=== PATIENT | male | born 2000 | race Caucasian/White ===

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

== ENCOUNTER 2020-09-11 23:46 | Emergency (ER) | payer OTHER, SELFPAY ==
[2019-05-13 14:15] VITALS: BMI 21.9
[2020-09-11 23:48] VITALS: BP 132/73; PULSE 83; RESP 15; TEMP 37.4; O2SAT 97; BMI 25.0
--- NOTE | 2020-09-11 23:55 | EKG12_ITS ---
Test Reason : CHEST DISCOMFORT Blood Pressure : / mmHG Vent. Rate : 077 BPM Atrial Rate : 077 BPM P-R Int : 138 ms QRS Dur : 106 ms QT Int : 350 ms P-R-T Axes : 075 098 053 degrees QTc Int : 396 ms Normal sinus rhythm Rightward axis Borderline ECG Confirmed by ARGELIA NERI, LAUREN ([id number]), material expeditor ROMA BARNES ([id number]) on 09/15/2020 8:16:41 AM Referred By: BB Confirmed By:LAUREN STOUT MD
[2020-09-12] VITALS: BP 132/73; PULSE 83; RESP 15; TEMP 37.4; O2SAT 97
--- NOTE | 2020-09-12 00:12 | RAD_ITS ---
STUDY: X-RAY CHEST REASON FOR EXAM: Male, 19 years old. chest pain TECHNIQUE: Single AP portable view of the chest. COMPARISON: None. FINDINGS: The lungs are clear and expanded. There is no demonstrated pleural abnormality. Normal size heart. Normal mediastinum and ashley. Normal visualized pulmonary arteries. Normal visualized aortic arch and descending thoracic aorta. Normal visualized thoracic spine. Normal visualized ribs, clavicles, and shoulders. There is no demonstrated abnormality of the visualized soft tissue structures of the upper abdomen. RAD/Chest 1 View (Portable) IMPRESSION: Normal x-ray examination of the chest. Electronically Signed: Pino Louis DO at 1:08 EDT Tel , Service support ,
--- NOTE | 2020-09-12 00:17 | EDS_ITS ---
HPI History of Present Illness Chief Complaint: Chest Pain Informant: patient and parent Onset/Context/Timing Onset: Weeks (1) Activity at onset: unknown Timing: Continuous Quality: Positive for Aching Location: Left Chest (without radiation; sometimes occurs central chest) Current Severity: Mild Maximum Severity: Mild Worsened By: Nothing (except tonight worse w/ lying down); Not Worsened By Breathing Relieved By: Nothing Associated Symptoms: Positive for Nausea and Lightheadedness (And shaky); Negative for Vomiting, Dyspnea, Cough, Fever and Palpitations Narrative Narrative: Patient has been having this left-sided chest discomfort fairly constantly for the last week. He has had no other associated symptoms except for some occasional discomfort in his central chest, which he states he has had episodically mildly prior to 1 week ago. He states that tonight he was sitting down to dinner, started feeling a little lightheaded, this got worse and he felt very shaky and like he was going to pass out, little nauseated. Also had some discomfort in both arms, worse in the left. Chest discomfort still present no changes. He went to lay down, this made the lightheadedness improved, and his chest discomfort felt a little worse. Nonpleuritic, no dyspnea. Never had any of this before. Healthy except for asthma, no asthma symptoms in the past week or tonight. No family history of heart disease at young ages. No recent long travel or immobilization, hospitalization, surgery. No leg pain or swelling, no history of DVT or PE. Prior Similar Symptoms: No CVD Risk Factors: Negative for Hypertension, Diabetes, Hypercholesterolemia, Family History 1' </=55 and Smoking PE Risk Factors: Negative for Recent Travel/Surgery, Recent Immobilization, Prior DVT or PE, Cancer and OCP + Smoking + >/=35 [facility] Medical History Asthma Home Medications albuterol sulfate 2 puff INHALATION Q4H PRN PRN 12/01/14 [History Last Taken Unknown] fluticasone propionate [Flovent HFA] 2 puff INHALATION BID 09/11/20 [History Last Taken Unknown] montelukast 10 mg PO QHS 09/11/20 [History Last Taken Unknown] pantoprazole [Protonix] 40 mg PO DAILY #14 tab 09/12/20 [Rx Last Taken Unknown] Allergy/AdvReac Type Severity Reaction Status Date / Time amoxicillin Allergy Nausea/Vom/ Verified 09/11/20 23:47 Diarrhea Surgical History History of tonsillectomy and adenoidectomy Social History Smoking Status: Never smoker ROS ROS ED Constitutional Constitutional ED: Reports as per HPI; Denies chills or fever(s) Eyes Eyes: Denies change in vision or diplopia ENT ENT ED: Denies rhinorrhea or sore throat Cardiovascular Cardiovascular: Reports as per HPI and chest pain; Denies palpitations Respiratory/Chest Respiratory/Chest: Denies cough or dyspnea Gastrointestinal Gastrointestinal: Denies abdominal pain, diarrhea, nausea or vomiting Genitourinary Genitourinary ED: Denies dysuria or hematuria Musculoskeletal Musculoskeletal: Denies back pain or neck pain Integumentary Denies abscess or rash Neurologic Neurologic: Denies headache(s), paresthesias or weakness Psychiatric Psychiatric: Denies anxiety or suicidal thoughts EXAM Physical Exam Const Vital Signs: 09/11/20 23:48 09/12/20 00:00 09/12/20 00:01 Temperature 99.4 F H 99.4 F H Temperature Source Temporal Temporal Pulse Rate 83 83 Respiratory Rate 15 15 Respiratory Effort Normal Respiratory Pattern Normal Blood Pressure 132/73 H 132/73 H Blood Pressure Mean 92 92 Pulse Ox 97 97 Oxygen Delivery Method Room Air Room Air Positive well nourished and well developed General Appearance ED: well developed and NAD HEENT Reports moist mucous membranes normocephalic and atraumatic Eyes PERRL and EOMs intact bilaterally Neck full ROM and supple Resp normal respiratory effort and clear to auscultation bilaterally Cardio regular rate, regular rhythm and no murmurs Rate: Negative for tachycardic GI non-tender and non-distended Auscultation: normoactive bowel sounds Palpation: soft Back/Spine no CVA tenderness General Back: other FROM Extremity normal to inspection and no calf tenderness General Extremety ED: Negative for edema, pulses abnormal or tenderness General Extremity: Negative for edema or pulses abnormal Neuro oriented x3, CN's II-XII intact bilaterally and no sensory deficits noted Sensorium / Orientation: awake and alert Motor Exam: strength 5/5 throughout Skin no rashes or lesions noted and no wounds Heart Score History: Slightly/Non-Suspicious ECG: Normal Age: </= 45 years Risk Factors: No Risk Factors Troponin: </= Normal Limit Score: 0 MDM MDM MDM Narrative Medical decision making narrative: Differential also includes hypoglycemia with regards to his near syncopal episode tonight, however my suspicion is that he has been having esophagus-related chest discomfort and had a vasovagal reaction that could have been mediated by GI-related pain tonight. While performing work-up to rule out anemia, electrolyte disturbance, cardiac damage, all of which was normal, he was given a GI cocktail. This indeed helped his chest discomfort, consistent with this theory. Additionally, his PERC score is 0, ruling out pulmonary embolus without the need for further emergent work-up. I discussed this with him as well. I reassured mom and patient, I feel it is appropriate to discharge him on a 2-week course of a PPI and have him follow-up, they are comfortable with this plan and I answered all questions at the bedside. Lab Data Attestation: I reviewed the patient's lab results. Labs: Laboratory Results - last 24 hr 09/12/20 09/12/20 00:25 00:25 WBC 5.8 RBC 4.89 Hgb 15.5 Hct 43.7 MCV 89.4 MCH 31.7 MCHC 35.5 RDW Std Deviation 36.2 RDW Coeff of Unruly 11.2 L Plt Count 194 MPV 9.2 Immature Gran % (Auto) 0.700 Neut % (Auto) 73.0 H Lymph % (Auto) 14.2 L Payette % (Auto) 7.6 Eos % (Auto) 3.5 Baso % (Auto) 1.0 Absolute Neuts (auto) 4.2 Absolute Lymphs (auto) 0.82 L Nucleated RBC % 0 Sodium 141 Potassium 3.6 Chloride 104 Carbon Dioxide 29.0 Anion Gap 8 BUN 17 Creatinine 1.19 Estim Creat Clear Calc 99.84 Est GFR (MDRD) Af Amer 101 Est GFR (MDRD) Non-Af 83 BUN/Creatinine Ratio 14.3 Glucose 111 H Calcium 9.1 Troponin I < 0.015 Radiography Chest X-Ray - ED: 1 View, Read by ED Physician, No Acute Disease and No Infiltrates Diagnostic Testing: Radiology Impression Chest X-Ray 09/12/20 00:12 IMPRESSION: Normal x-ray examination of the chest. Electronically Signed: Pino Louis DO at 1:08 EDT Tel , Service support , EKG Initial EKG: Attestation: I personally reviewed and interpreted this EKG as follows: Interpretation: Sinus Rhythm and No Acute Injury Pattern Comments: Normal EKG Prior EKG tracings: not available for review Discharge Plan Triage Chief Complaint: Chest Pain ED Provider: Nir Campos Dx/Rx/DC Orders Clinical Impression: Chest pain, non-cardiac, Vasovagal near syncope Instructions: ED Chest Pain, Noncardiac, ED Near-Fainting- Vagal Reaction Prescriptions: New pantoprazole [Protonix] 40 mg tablet,delayed release (DR/EC) 40 mg PO DAILY Qty: 14 RF: 0 No Action albuterol sulfate 1 INHALER inhaler 2 puff inhalation Q4H PRN PRN (Reason: Shortness Of Breath) RF: 0 Flovent HFA 44 mcg/actuation Hfa Aerosol Inhaler 2 puff INHALATION BID RF: 0 montelukast 10 mg Tablet 10 mg PO QHS RF: 0 Primary Care Provider: Melissa Pierce Referrals: Melissa Pierce MD [Primary Care Provider] - 1-2 Weeks Disposition Disposition: Home, self care
[2020-09-12] MEDS: Mag Hydrox/Al Hydrox/Simeth 30 ML UDC PO (00:23)
[2020-09-12 00:52] LABS: Absolute Lymphocyte Count 0.82 X10^3/uL (0.83-4.51); Absolute Neutrophil Count 4.2 X10^3/uL (2.0-7.7); Basophil# 0.06 X10^3/uL; Eosinophils% 3.5 % (0-5); Hematocrit 43.7 % (40-54); Hemoglobin 15.5 g/dL (13.0-16.5); Lymphocyte # 0.82 X10^3/ul (0.83-4.51); Lymphocyte % 14.2 % (19-41); Mean Corp Hgb Conc 35.5 g/dL (32-36); Mean Corpuscular Hgb 31.7 pg (27.0-32.0); Mean Corpuscular Volume 89.4 fL (80-94); Mean Platelet Vol. 9.2 fl (6.2-12.0); Monocyte# 0.44 X10^3/uL; Monocyte% 7.6 % (0-10); NRBC Flagged by Analyzer 0 % (0-5); Neutrophil # 4.22 X10^3/uL (2.7-7.7); Platelet Count 194 K/mm3 (150-450); RBC Distribution Width CV 11.2 % (11.6-14.6); RBC Distribution Width SD 36.2 fl (35.1-43.9); Red Blood Count 4.89 M/mm3 (4.6-6.2); White Blood Count 5.8 K/mm3 (4.4-11.0)
[2020-09-12 00:55] LABS: Anion Gap 8 (5-15); BUN 17 mg/dL (7-18); BUN/Creat Ratio 14.3 RATIO (10-20); Calcium,Total 9.1 mg/dL (8.5-10.1); Chloride 104 mmol/L (98-107); Creatinine, Serum 1.19 mg/dL (0.70-1.30); EST Glomerular Filtration Rate 83 mL/min (>60); Est Glom Filt Rate - Afr Amer 101 mL/min (>60); Estimated Creatinine Clearance 99.84 ml/min; Glucose 111 mg/dL (74-106); Potassium 3.6 mmol/L (3.5-5.1); Sodium Level 141 mmol/L (136-145)
[2020-09-12 01:20] VITALS: BP 127/63; PULSE 65; RESP 16; O2SAT 97
[2020-09-12] MEDS: Pantoprazole Sodium 40 MG Tablet PO (01:22)
== END 2020-09-12 01:25 | disposition home or self-care (01) ==
PROVIDERS: Emergency Provider Emergency Medicine; PCP Pediatrics
DX: R07.89 Other chest pain (principal); R55 Syncope and collapse; R11.0 Nausea; J45.909 Unspecified asthma, uncomplicated; Z79.51 Long term (current) use of inhaled steroids; Z79.899 Other long term (current) drug therapy
CPT/HCPCS: 71045; 80048; 84484; 85025; 93005; 99285; A4216

== ENCOUNTER → 2020-12-26 08:11 | Outpatient (CLI) | payer OTHER, SELFPAY ==
--- NOTE | 2020-12-26 08:15 | US_ITS ---
STUDY: ABDOMINAL ULTRASOUND - RIGHT UPPER QUADRANT REASON FOR VISIT: Male, 20 years old . Chronic right upper quadrant pain. TECHNIQUE: Ultrasound evaluation of the right upper quadrant was performed with real-time and static rasmussen-scale imaging. TECHNICAL QUALITY: Adequate. COMPARISON: None. FINDINGS: Liver: The liver measures 15.5 cm. There is normal echogenicity of the liver. The bile ducts are within normal limits. There is hepatic color flow. The direction of portal flow is hepatopetal. There is no demonstrated mass lesion. Gallbladder: Normal distended gallbladder. The gallbladder wall measures 2.6 mm. There is a negative sonographic Hyde''s sign. There is no pericholecystic fluid. There are no gallstones. Common Bile Duct (C.B.D.): The common bile duct measures 2.7 mm. Pancreas: Normal size of the head, body and tail of the pancreas. There is normal echogenicity of the pancreas. There is no demonstrated pancreatic mass or cyst. Right Kidney: Normal size of the right kidney. The right kidney measures 9.8 cm x 4.8 cm x 5.7 cm. Normal renal cortex. The right cortex measures 1.9 cm. There is no demonstrated renal mass or cyst. There is no right hydronephrosis. US/Gallbladder IMPRESSION: Normal right upper quadrant ultrasound examination. Electronically Signed: David Ruiz MD at 15:01 EDT , Service support ,
== END ==
PROVIDERS: PCP Pediatrics; Referring Provider Internal Medicine Gastroenterology; Visit Provider Internal Medicine Gastroenterology
DX: R10.11 Right upper quadrant pain (principal)
CPT/HCPCS: 76705

== ENCOUNTER 2021-01-03 08:14 | Day surgery (SDC) | payer OTHER, SELFPAY ==
[2021-01-03] VITALS (7 sets, daily range): BP systolic 90–127; BP diastolic 34–62; PULSE 69–76; RESP 14–16; TEMP 36.7–37; O2SAT 96–99; BMI 53.0
[2021-01-03] MEDS: Lactated Ringers 1,000 ML 100 ML IV (08:25)
--- NOTE | 2021-01-03 09:15 | EGD_PTH ---
PATIENT: SHIRLENE HARTMAN LOC: [facility] U#:[id number] AGE/SX: 20/M ROOM: RE01/03/[address]: Dr. Hansel Felder DO : 2000 BED: DIS: 01/03/2021 SPEC #: [id number] RECD: 01/03/21 11:32 STATUS: GEE MCCONNELLNicky #: [id number] MUNIR: 01/03/21 09:[address]: Hansel Felder DEPT: SURGICAL PATHOLOGY RECD BY: Jenny Ferreira ENTERED: 01/03/21 12:23 SP TYPE: EGD BIOPSY OT DR: Dr. Melissa Pierce MD Tissues: Duodenum, NOS Procedures: Surgery Specimen Level IV HEADER OPERATION: EGD ([facility]) PRE-OP DIAGNOSIS: Abdominal pain TISSUE SUBMITTED: Biopsy of duodenal ulcer MICROSCOPIC DIAGNOSIS Duodenal ulcer, biopsy: Fragments of duodenal mucosa with congestion, hemorrhage and focal gastric metaplasia. Fragments of food particle. SJ:otto 01/04/2021 MICROSCOPIC DESCRIPTION Slides are reviewed. GROSS DESCRIPTION Received in fixative is one container labeled with the patient's name and designated duodenal biopsy. The specimen consists of multiple irregular fragments of light mascorro soft tissue that in aggregate measure 0.8 x 0.3 x 0.1 cm. The specimen is totally submitted in one cassette. / AM:otto 01/03/21 TC:5 CPT: 95039
--- NOTE | 2021-01-03 09:29 | PCM.HP.BLA ---
History and Physical Date of Admission: 01/03/21 [facility] Chief Complaint: nausea, bloating, change in bowel habits Details: SHIRLENE HARTMAN, is a 20 M who presents to the office today for nausea, diarrhea (no noted blood), change in bowel habits (new diarrhea), abd pain, bloating, indigestion, mouth sweats and weight loss. Symptoms have been off an on for the last two years. Most recent Friday symptoms became acute and will interrupts sleep. Symptoms are always present but get better and worse during the day. Unable to identify things that make them better or worse. Weight loss has been in the last week and normal weight is 170. His main problem at this time is epigastric pain and right upper quadrant pain. Approximately 10 days ago he was started on prednisone for a 4 upper respiratory tract infection. On Friday he developed worsening abdominal pain associated nausea and episodes of vomiting. He is away at school and had to come back home to quarantine to make sure that he did not have Covid. His Covid test was negative. However his abdominal pain persists. 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 He was having chest pain so he was seen in the emergency room and they did a cardiac work-up including EKG and cardiac enzymes. He also had a chest x-ray which did not show any abnormalities. His mother is with him on his visit is concerned that is his gallbladder as she had her gallbladder out in her early 20s. He denies any darkened urine or carolyn colored stools. He denies any fever or chills but just is in excruciating pain. ROS Const Constitutional: Positive for fatigue and weight change (Loss) Eyes Eyes: No change in vision ENT ENT: Positive for nasal congestion; No abnormal hearing, tongue swelling or throat swelling Resp Respiratory: No cough or shortness of breath Cardio Cardiology: Positive for chest pain at rest, shortness of breath and difficulty breathing Gastro GI: Positive for abdominal pain, bloating, change in bowel habits, diarrhea, heartburn and nausea/dyspepsia Genitourinary Male: No difficulty urinating or burning urination Musc Musculoskeletal: No joint pain, joint swelling, muscle weakness or decreased muscle mass Skin Skin: No hair loss in leg, yellowing of the eye, itchy eyes, rash, skin ulcer or skin swelling Neuro Neurology: No abnormal hearing, abnormal movements, confusion, unsteady gait/balance or memory loss Psych Psychiatric: No confusion, No memory loss and Positive for inattentiveness Endo Endocrine: Positive for fatigue and weight change (Loss) Aller/Imm Allergy/Immunologic: No itchy eyes, throat swelling or tongue swelling Michael/Lymp Hematologic/Lymphatic: No easy bleeding, easy bruising or enlarged lymph nodes Exam Const General: cooperative and comfortable Nutritional Appearance: average body habitus and well nourished [facility] Head: normal to inspection Ears: hearing grossly normal bilaterally Nose: external nose normal Face and sinus: normal facial exam Mouth: oral mucosae normal Throat: posterior oropharynx normal Eyes General: appearance normal, both eyes and all related structures Neck Neck: normal visual inspection Chest Chest palpation & inspection: normal inspection of the chest and normal palpation of entire chest wall Resp Effort & Inspection: normal respiratory effort Auscultation: Bilateral: Clear to Auscultation Cardio Palpation: normal PMI Rate: regular rate Rhythm: regular rhythm GI Inspection: normal to inspection Auscultation: normal bowel sounds Percussion: normal to percussion Palpation: no hepatosplenomegaly Other: He does have tenderness over the right upper quadrant in the midepigastric area. Skin General: no rashes or lesions noted Neuro General: patient alert Extrem General: normal to inspection Psych Affect: normal affect Quality Reporting Tobacco Screening ([facility] 138) Smoking Status: Never smoker Assessment and Plan Assessment and Plan (1) Abdominal pain: Status: Acute Orders: Orders: Gallbladder Today Plan - Dr. Hamm Friend, DO: I will get a stat right upper quadrant ultrasound. Says he did get a GI cocktail in the ED and was on Protonix for a couple days and it did help him I will give him a prescription for 40 mg apoptotic twice a day and also put him on dicyclomine for abdominal cramping. On the differential diagnosis does include biliary dyskinesia, chronic cholecystitis, gastritis secondary to H. pylori. Hopefully will get some results as soon as possible. I explained to his mom if his ultrasound is negative we may need a CT scan abdomen pelvis versus upper endoscopy. They both were okay with this plan. All questions were answered. Thank you very much for allowing me to precipitate in the care of patient. Plan Details Other Medications: New: pantoprazole (Protonix) 40 mg PO Q12H 60 ea 0RF dicyclomine 20 mg PO TID 60 tabs 0RF This is an updated H&P form and the patient was seen in the office. Nothing is changed since he was seen in office.
--- NOTE | 2021-01-03 09:51 | OP.CCLET_ITS ---
12/06/2021 Melissa Pierce Re : Upper GI endoscopy procedure for Dileep Pierce This procedure was performed on Sunday, January 03, 2021. My impressions and recommendations are as follows: Impressions : - Normal esophagus. - Normal stomach. - One non-bleeding duodenal ulcer with no stigmata of bleeding. Biopsied. - Normal esophagus. - A large amount of food (residue) in the stomach. - One non-bleeding duodenal ulcer with no stigmata of bleeding. Biopsied. Recommendations : - Discharge patient to home. - Resume previous diet. - Continue present medications. - Await pathology results. My findings are described in the full procedure note, which is enclosed. If I can be of further assistance, please feel free to contact me at . Sincerely, Hansel Friend, 01/03/2021 9:51:11 AM This report has been signed electronically.
--- NOTE | 2021-01-03 09:51 | OP.EGD_ITS ---
Patient Name: Dileep Perez Procedure Date: 01/03/2021 9:31 AM Date of : 2000 Age: 20 Procedure: Upper GI endoscopy Indications: Epigastric abdominal pain Providers: Hansel Felder DO Medicines: Propofol per Anesthesia Patient Profile: This is a 20 year old male. Refer to note in patient chart for documentation of history and physical. Patient has symptoms of acute epigastric abdominal pain. The symptoms first began November. Complications: No immediate complications. Procedure: Pre-Anesthesia Assessment: - Prior to the procedure, a History and Physical was performed, and patient medications and allergies were reviewed. The patient is competent. The risks and benefits of the procedure and the sedation options and risks were discussed with the patient. All questions were answered and informed consent was obtained. Patient identification and proposed procedure were verified by the physician in the pre-procedure area. Mental Status Examination: alert and oriented. Airway Examination: normal oropharyngeal airway and neck mobility. Respiratory Examination: clear to auscultation. CV Examination: normal. Prophylactic Antibiotics: The patient does not require prophylactic antibiotics. Prior Anticoagulants: The patient has taken no previous anticoagulant or antiplatelet agents. ASA Grade Assessment: II - A patient with mild systemic disease. After reviewing the risks and benefits, the patient was deemed in satisfactory condition to undergo the procedure. The anesthesia plan was to use moderate sedation / analgesia (conscious sedation). Immediately prior to administration of medications, the patient was re-assessed for adequacy to receive sedatives. The heart rate, respiratory rate, oxygen saturations, blood pressure, adequacy of pulmonary ventilation, and response to care were monitored throughout the procedure. The physical status of the patient was re-assessed after the procedure. After obtaining informed consent, the endoscope was passed under direct vision. Throughout the procedure, the patient's blood pressure, pulse, and oxygen saturations were monitored continuously. The Endoscope was introduced through the mouth, and advanced to the second part of duodenum. The upper GI endoscopy was accomplished without difficulty. The patient tolerated the procedure well. Moderate Sedation: Moderate (conscious) sedation was administered by the endoscopy nurse and supervised by the endoscopist. The patient's oxygen saturation, heart rate, blood pressure and response to care were monitored. Scope In: 9:38:25 AM Scope Out: 9:43:19 AM Total Procedure Duration Time 0 hours 4 minutes 54 seconds Findings: The examined esophagus was normal. The entire examined stomach was normal. One non-bleeding cratered duodenal ulcer with no stigmata of bleeding was found in the first portion of the duodenum. Biopsies were taken with a cold forceps for histology. Verification of patient identification for the specimen was done by the physician. Estimated blood loss was minimal. The examined esophagus was normal. A large amount of food (residue) was found in the entire examined stomach. One non-bleeding cratered duodenal ulcer with no stigmata of bleeding was found in the first portion of the duodenum. Biopsies were taken with a cold forceps for histology. Verification of patient identification for the specimen was done. Estimated blood loss was minimal. Impression: - Normal esophagus. - Normal stomach. - One non-bleeding duodenal ulcer with no stigmata of bleeding. Biopsied. - Normal esophagus. - A large amount of food (residue) in the stomach. - One non-bleeding duodenal ulcer with no stigmata of bleeding. Biopsied. Recommendation: - Discharge patient to home. - Resume previous diet. - Continue present medications. - Await pathology results. Procedure Code(s): --- Professional --- 75572, Esophagogastroduodenoscopy, flexible, transoral; with biopsy, single or multiple CPT copyright 2017 [employer]. All rights reserved. The codes documented in this report are preliminary and upon it program manager review may be revised to meet current compliance requirements. Hansel Felder DO 01/03/2021 9:51:11 AM This report has been signed electronically. Number of Addenda: 1 Note Initiated On: 01/03/2021 9:31 AM Addendum Number: 1 Addendum Date: 12/06/2021 4:11:22 PM MAC was used instead of moderate sedation for this patient. Hansel Felder DO 12/06/2021 4:11:26 PM This report has been signed electronically.
== END 2021-01-03 10:52 | disposition home or self-care (01) ==
LOC: EN 08:15 → AC 08:16
PROVIDERS: PCP Pediatrics; Referring Provider Pediatrics; Visit Provider Internal Medicine Gastroenterology
PROC: 0DJ08ZZ Inspection of Upper Intestinal Tract, Via Natural or Artificial Opening Endoscopic (ICD-10-PCS; CPT 43235; principal; 2021-01-03 09:10)
DX: K26.9 Duodenal ulcer, unspecified as acute or chronic, without hemorrhage or perforation (principal); R10.11 Right upper quadrant pain; Z79.899 Other long term (current) drug therapy
CPT/HCPCS: 43239; 88305; J7120; J2405